=== PATIENT | female | born 1995 | race African-American/Black ===

== ENCOUNTER 2017-06-15 16:47 | Emergency (ER) | payer OTHER ==
[~2017-06-15] VITALS: Ht 167.6 cm; Wt 55.0 kg
[~2017-06-15 16:47] MED LIST: ALBUTEROL
[2017-06-15] MEDS ORDERED: DIPHENHYDRAMINE 50MG/ML VIAL IV ONE (17:30)
[2017-06-15 18:40] VITALS: BP 136/82
== END 2017-06-15 19:21 | disposition home or self-care (01) ==
LOC: ER 16:55
DX: O26.892 Other specified pregnancy related conditions, second trimester (principal); L50.9 Urticaria, unspecified; J45.909 Unspecified asthma, uncomplicated; Z3A.24 24 weeks gestation of pregnancy
CPT/HCPCS: 96374; 99284; J1200; Z7610